=== PATIENT | female | born 1970 | race Caucasian/White ===

== ENCOUNTER 2023-03-15 12:45 | Inpatient (IN) ==
[2023-03-15] MEDS ORDERED: IOPAMIDOL 100 ML BOTTLE IV ONE (12:46)
[2023-03-15] MEDS ORDERED: ONDANSETRON 4 MG/2 ML VIAL IV ONE (13:17)
[2023-03-15] MEDS ORDERED: HYDROmorphone 1 MG/ML SYRINGE IV ONE ×2 (13:17→15:11)
[2023-03-15 13:41] LABS: Basophils # (Auto) 0.05 K/mcL (0.00-0.30); Basophils % (Auto) 0.6 % (0.0-2.0); Eosinophils # (Auto) 0.11 K/mcL (0.00-0.70); Eosinophils % (Auto) 1.3 % (0.0-7.0); Hematocrit 41.2 % (34.1-44.9); Hemoglobin 12.9 g/dL (11.2-15.7); Lymphocytes # (Auto) 2.59 K/mcL (1.50-4.80); Lymphocytes % (Auto) 30.6 % (15.5-49.0); Mean Cell Volume 89.6 fL (80.0-100.0); Mean Corpuscular HGB Conc 31.3 g/dL (31.0-36.0); Mean Platelet Volume 10.6 fL (8.8-12.5); Monocytes # (Auto) 0.55 K/mcL (0.10-0.90); Monocytes % (Auto) 6.5 % (1.0-12.0); Neutrophils % (Auto) 60.9 % (38.0-78.0); Platelet Count 318 K/mcL (140-440); Red Cell Distribution Width 13.2 % (11.5-14.5); WBC 8.5 K/mcL (4.5-11.0)
[2023-03-15 13:59] LABS: ALT/SGPT 34 U/L (<40); AST/SGOT 28 U/L (<32); Albumin 4.3 gm/dL (3.2-5.2); Albumin/Globulin Ratio 1.3 (1.0-2.3); Alkaline Phosphatase 97 U/L (39-117); Bilirubin,Total 0.3 mg/dL (0.1-1.0); Blood Urea Nitrogen 20 mg/dL (6-20); Calcium 9.6 mg/dL (8.6-10.4); Carbon Dioxide 24 mmol/L (22-30); Chloride 103 mmol/L (96-108); Globulin 3.2 gm/dL (2.2-3.7); Glomerular Filtration Rate 103; Glucose 88 mg/dL (70-105)
[2023-03-15 15:15] LABS: Appearance,Urine Clear (Clear); Bilirubin,Urine Negative (Negative); Color,Urine Yellow; Culture Indicated,Urine No; Glucose,Urine (UA) Negative (Negative); Ketones,Urine 15 mg/dL (Negative); Leukocyte Esterase,Urine Negative /uL (Negative); Nitrate,Urine Negative (Negative); Protein,Urine Negative (Negative); Urine Blood Negative ery/mcL (Negative); Urobilinogen,Urine Normal
[2023-03-15] MEDS ORDERED: ONDANSETRON 4 MG/2 ML VIAL IV PRN ×2 (15:40→18:31)
[2023-03-15] MEDS ORDERED: morphine 2 MG/ML VIAL IV PRN (15:40)
[2023-03-15] MEDS ORDERED: 0.9 % SODIUM CHLORIDE 250 ML IV SCH (15:45)
[2023-03-15 16:34] LABS: Prothrombin Time 13.9 sec (11.9-14.5)
[2023-03-15] MEDS: 0.9 % SODIUM CHLORIDE 1,000 ML IV SCH (19:59)
[2023-03-15] MEDS ORDERED: PIPERACILLIN SODIUM/TAZOBACTAM 3.375 GM in DEXTROSE 5% IN WATER 50 ML IV ONE (20:00)
[2023-03-15] MEDS: HYDROmorphone 1 MG/ML SYRINGE IV PRN (21:15)
[2023-03-16] MEDS: PIPERACILLIN SODIUM/TAZOBACTAM 3.375 GM in DEXTROSE 5% IN WATER 100 ML IV SCH ×3 (00:28→08:52)
[2023-03-16] MEDS: 0.9 % SODIUM CHLORIDE 1,000 ML IV SCH ×5 (03:11→20:52)
[2023-03-16 07:08] LABS: Basophils # (Auto) 0.06 K/mcL (0.00-0.30); Basophils % (Auto) 0.9 % (0.0-2.0); Eosinophils # (Auto) 0.14 K/mcL (0.00-0.70); Eosinophils % (Auto) 2.2 % (0.0-7.0); Hemoglobin 11.7 g/dL (11.2-15.7); Lymphocytes # (Auto) 2.18 K/mcL (1.50-4.80); Lymphocytes % (Auto) 33.6 % (15.5-49.0); Mean Cell Volume 89.8 fL (80.0-100.0); Mean Corpuscular HGB Conc 31.6 g/dL (31.0-36.0); Mean Platelet Volume 10.5 fL (8.8-12.5); Monocytes # (Auto) 0.45 K/mcL (0.10-0.90); Monocytes % (Auto) 6.9 % (1.0-12.0); Neutrophils % (Auto) 56.2 % (38.0-78.0); Platelet Count 283 K/mcL (140-440); RBC 4.12 M/mcL (3.59-5.38); Red Cell Distribution Width 13.1 % (11.5-14.5); WBC 6.5 K/mcL (4.5-11.0)
[2023-03-16 07:19] LABS: ALT/SGPT 36 U/L (<40); AST/SGOT 34 U/L (<32); Albumin 3.7 gm/dL (3.2-5.2); Albumin/Globulin Ratio 1.4 (1.0-2.3); Alkaline Phosphatase 90 U/L (39-117); Bilirubin,Direct < 0.2 mg/dL (0-0.3); Bilirubin,Total 0.6 mg/dL (0.1-1.0); Blood Urea Nitrogen 12 mg/dL (6-20); Calcium 9.2 mg/dL (8.6-10.4); Carbon Dioxide 26 mmol/L (22-30); Chloride 107 mmol/L (96-108); Globulin 2.6 gm/dL (2.2-3.7); Glomerular Filtration Rate 98; Glucose 80 mg/dL (70-105); Lactate Dehydrogenase 97 U/L (135-225); Phosphorous 4.6 mg/dL (2.5-4.5); Triglycerides 79 mg/dL (<150); Uric Acid 2.4 mg/dL (2.5-8.0)
[2023-03-16] MEDS: PANTOPRAZOLE 40 MG VIAL IV SCH ×2 (07:37→16:55)
[2023-03-16] MEDS ORDERED: PROPOFOL 200 MG/20 ML VIAL IV ONE ×2 (08:32→10:19)
[2023-03-16] MEDS ORDERED: ROCURONIUM 10 MG/ML ML IV ONE (08:32)
[2023-03-16] MEDS ORDERED: ONDANSETRON 4 MG/2 ML VIAL ONE (08:32)
[2023-03-16] MEDS ORDERED: fentaNYL 100 MCG/2 ML VIAL ONE (08:32)
[2023-03-16] MEDS ORDERED: IPRATROPIUM/ALBUTEROL 3 ML AMPUL.NEB NEB PRN ×2 (09:00→10:38)
[2023-03-16] MEDS ORDERED: SCOPOLAMINE 1 PATCH PATCH TOPICAL PRN (09:00)
[2023-03-16] MEDS ORDERED: ROPIVACAINE HCL/PF 30 ML VIAL IJ ONE (09:42)
[2023-03-16] MEDS ORDERED: HYDROmorphone 1 MG/ML SYRINGE ONE (10:31)
[2023-03-16] MEDS ORDERED: ePHEDrine 50 MG/ML AMPUL IV PRN (10:38)
[2023-03-16] MEDS ORDERED: HYDROmorphone 0.5 MG/0.5 ML SYRINGE IV PRN (10:38)
[2023-03-16] MEDS ORDERED: METHOCARBAMOL 1,000 MG/10 ML VIAL IV PRN (10:38)
[2023-03-16] MEDS ORDERED: ONDANSETRON 4 MG/2 ML VIAL IV PRN (10:38)
[2023-03-16] MEDS ORDERED: NALOXONE HCL 0.4 MG/ML VIAL IV PRN (10:38)
[2023-03-16] MEDS ORDERED: METHOCARBAMOL 1,000 MG/10 ML VIAL ONE (10:52)
[2023-03-16] MEDS: fentaNYL 100 MCG/2 ML VIAL IV PRN ×2 (10:59→11:02)
[2023-03-16] MEDS ORDERED: SUMAtriptan SUCCINATE 50 MG TABLET PO PRN (11:45)
[2023-03-16] MEDS: METOCLOPRAMIDE 10 MG/2 ML VIAL IV SCH ×2 (12:20→17:46)
[2023-03-16] MEDS: HYDROmorphone 1 MG/ML SYRINGE IV PRN (13:24)
[2023-03-16] MEDS ORDERED: ACETAMINOPHEN 500 MG TABLET PO ONE (16:52)
[2023-03-16] MEDS: ACETAMINOPHEN 500 MG TABLET PO PRN ×2 (16:55→20:49)
[2023-03-16] MEDS: AMITRIPTYLINE 10 MG TABLET PO SCH (20:50)
[2023-03-16] MEDS: CYCLOBENZAPRINE 10 MG TABLET PO PRN (22:55)
[2023-03-17] MEDS: PIPERACILLIN SODIUM/TAZOBACTAM 3.375 GM in DEXTROSE 5% IN WATER 100 ML IV SCH ×3 (00:14→15:37)
[2023-03-17] MEDS: METOCLOPRAMIDE 10 MG/2 ML VIAL IV SCH ×4 (00:14→17:28)
[2023-03-17] MEDS: HYDROmorphone 1 MG/ML SYRINGE IV PRN ×5 (03:43→21:42)
[2023-03-17] MEDS: 0.9 % SODIUM CHLORIDE 1,000 ML IV SCH ×4 (03:44→15:43)
[2023-03-17 06:11] LABS: Basophils # (Auto) 0.03 K/mcL (0.00-0.30); Basophils % (Auto) 0.2 % (0.0-2.0); Eosinophils # (Auto) 0.14 K/mcL (0.00-0.70); Eosinophils % (Auto) 1.1 % (0.0-7.0); Hematocrit 37.1 % (34.1-44.9); Hemoglobin 11.9 g/dL (11.2-15.7); Lymphocytes # (Auto) 1.19 K/mcL (1.50-4.80); Lymphocytes % (Auto) 9.4 % (15.5-49.0); Mean Cell Volume 88.8 fL (80.0-100.0); Mean Corpuscular HGB Conc 32.1 g/dL (31.0-36.0); Mean Platelet Volume 10.7 fL (8.8-12.5); Monocytes # (Auto) 0.75 K/mcL (0.10-0.90); Monocytes % (Auto) 5.9 % (1.0-12.0); Neutrophils % (Auto) 83.3 % (38.0-78.0); Platelet Count 307 K/mcL (140-440); RBC 4.18 M/mcL (3.59-5.38); Red Cell Distribution Width 13.2 % (11.5-14.5); WBC 12.7 K/mcL (4.5-11.0)
[2023-03-17 06:59] LABS: ALT/SGPT 26 U/L (<40); AST/SGOT 25 U/L (<32); Albumin 3.4 gm/dL (3.2-5.2); Albumin/Globulin Ratio 1.3 (1.0-2.3); Alkaline Phosphatase 79 U/L (39-117); Bilirubin,Direct < 0.2 mg/dL (0-0.3); Bilirubin,Total 0.6 mg/dL (0.1-1.0); Blood Urea Nitrogen 7 mg/dL (6-20); Calcium 9.1 mg/dL (8.6-10.4); Carbon Dioxide 21 mmol/L (22-30); Chloride 107 mmol/L (96-108); Globulin 2.7 gm/dL (2.2-3.7); Glomerular Filtration Rate 103; Glucose 99 mg/dL (70-105); Lactate Dehydrogenase 134 U/L (135-225); Phosphorous 3.8 mg/dL (2.5-4.5); Triglycerides 80 mg/dL (<150); Uric Acid 2.3 mg/dL (2.5-8.0)
[2023-03-17] MEDS: PANTOPRAZOLE 40 MG VIAL IV SCH ×2 (07:55→17:28)
[2023-03-17] MEDS: CYCLOBENZAPRINE 10 MG TABLET PO PRN (19:07)
[2023-03-17] MEDS: AMITRIPTYLINE 10 MG TABLET PO SCH (21:30)
[2023-03-18] MEDS: PIPERACILLIN SODIUM/TAZOBACTAM 3.375 GM in DEXTROSE 5% IN WATER 100 ML IV SCH ×4 (00:08→23:31)
[2023-03-18] MEDS: METOCLOPRAMIDE 10 MG/2 ML VIAL IV SCH ×5 (00:08→23:30)
[2023-03-18] MEDS: METHOCARBAMOL 500 MG TABLET PO PRN ×2 (01:36→19:21)
[2023-03-18] MEDS: HYDROmorphone 1 MG/ML SYRINGE IV PRN ×5 (03:45→20:38)
[2023-03-18] MEDS: 0.9 % SODIUM CHLORIDE 1,000 ML IV SCH ×2 (05:18→17:41)
[2023-03-18] MEDS: PANTOPRAZOLE 40 MG VIAL IV SCH ×2 (07:52→16:19)
[2023-03-18] MEDS: CYCLOBENZAPRINE 10 MG TABLET PO PRN ×2 (12:16→23:30)
[2023-03-18] MEDS: AMITRIPTYLINE 10 MG TABLET PO SCH (20:35)
[2023-03-19] MEDS: HYDROmorphone 1 MG/ML SYRINGE IV PRN ×4 (02:45→23:46)
[2023-03-19] MEDS: METHOCARBAMOL 500 MG TABLET PO PRN ×2 (05:29→21:28)
[2023-03-19] MEDS: METOCLOPRAMIDE 10 MG/2 ML VIAL IV SCH ×4 (05:29→23:45)
[2023-03-19] MEDS: PANTOPRAZOLE 40 MG VIAL IV SCH ×2 (08:23→16:22)
[2023-03-19] MEDS: PIPERACILLIN SODIUM/TAZOBACTAM 3.375 GM in DEXTROSE 5% IN WATER 100 ML IV SCH ×3 (08:23→23:45)
[2023-03-19] MEDS: CYCLOBENZAPRINE 10 MG TABLET PO PRN ×2 (08:30→23:45)
[2023-03-19] MEDS ORDERED: DIATRIZOATE MEGLU/DIATRIZO SOD 120ML BOTTLE PO ONE (15:18)
[2023-03-19] MEDS: 0.9 % SODIUM CHLORIDE 1,000 ML IV SCH (15:39)
[2023-03-19] MEDS: AMITRIPTYLINE 10 MG TABLET PO SCH (21:26)
[2023-03-20] MEDS: ACETAMINOPHEN 500 MG TABLET PO PRN (03:13)
[2023-03-20] MEDS: METOCLOPRAMIDE 10 MG/2 ML VIAL IV SCH ×3 (05:10→18:06)
[2023-03-20 06:21] LABS: Basophils # (Auto) 0.05 K/mcL (0.00-0.30); Basophils % (Auto) 0.6 % (0.0-2.0); Eosinophils # (Auto) 0.46 K/mcL (0.00-0.70); Eosinophils % (Auto) 5.6 % (0.0-7.0); Hematocrit 33.8 % (34.1-44.9); Hemoglobin 10.8 g/dL (11.2-15.7); Lymphocytes # (Auto) 1.47 K/mcL (1.50-4.80); Lymphocytes % (Auto) 17.9 % (15.5-49.0); Mean Cell Volume 89.4 fL (80.0-100.0); Monocytes # (Auto) 0.64 K/mcL (0.10-0.90); Monocytes % (Auto) 7.8 % (1.0-12.0); Neutrophils % (Auto) 67.9 % (38.0-78.0); Platelet Count 248 K/mcL (140-440); RBC 3.78 M/mcL (3.59-5.38); Red Cell Distribution Width 13.2 % (11.5-14.5); WBC 8.2 K/mcL (4.5-11.0)
[2023-03-20 06:36] LABS: ALT/SGPT 15 U/L (<40); AST/SGOT 14 U/L (<32); Albumin 3.2 gm/dL (3.2-5.2); Albumin/Globulin Ratio 1.2 (1.0-2.3); Alkaline Phosphatase 61 U/L (39-117); Bilirubin,Direct 0.2 mg/dL (<0.3); Bilirubin,Total 0.6 mg/dL (0.1-1.0); Blood Urea Nitrogen 8 mg/dL (6-20); Carbon Dioxide 24 mmol/L (22-30); Chloride 103 mmol/L (96-108); Globulin 2.6 gm/dL (2.2-3.7); Glomerular Filtration Rate 103; Glucose 79 mg/dL (70-105); Lactate Dehydrogenase 108 U/L (135-225); Phosphorous 3.9 mg/dL (2.5-4.5); Triglycerides 97 mg/dL (<150); Uric Acid 2.9 mg/dL (2.5-8.0)
[2023-03-20] MEDS: HYDROmorphone 1 MG/ML SYRINGE IV PRN ×2 (09:33→13:41)
[2023-03-20] MEDS: PANTOPRAZOLE 40 MG VIAL IV SCH ×2 (09:33→18:06)
[2023-03-20] MEDS: PIPERACILLIN SODIUM/TAZOBACTAM 3.375 GM in DEXTROSE 5% IN WATER 100 ML IV SCH ×2 (09:33→18:05)
[2023-03-20] MEDS: METHOCARBAMOL 500 MG TABLET PO PRN (09:34)
== END 2023-03-20 18:10 | disposition home or self-care (01) | DRG 398 ==
LOC: ED 12:45 → MEDSUR 17:49
PROVIDERS: ADMIT Family Medicine Adult Medicine; ATTEND Family Medicine Adult Medicine